=== PATIENT | female | born 1945 | race Caucasian/White ===

== ENCOUNTER 2017-05-18 14:54 | Inpatient (IN) ==
[2017-05-18] MEDS ORDERED: SODIUM CHLORIDE 0.9% 1,750 ML IV ONE (17:27)
[2017-05-18] MEDS ORDERED: SODIUM CHLORIDE 0.9% 1,000 ML IV SCH (17:30)
[2017-05-18] MEDS ORDERED: LEVOFLOXACIN INJ 750 MG in PREMIX 1 EACH IV SCH (17:30)
[2017-05-18] MEDS ORDERED: LACTULOSE 20 GM/30 ML UDCUP PO PRN (17:34)
[2017-05-18] MEDS ORDERED: ONDANSETRON 4 MG/2 ML VIAL IV PRN (17:34)
[2017-05-18] MEDS ORDERED: DOCUSATE SODIUM 100 MG CAPSULE PO PRN (17:34)
[2017-05-18] MEDS ORDERED: ALBUTEROL/IPRATROPIUM 3 ML NEB RESP TX PRN (17:36)
[2017-05-18] MEDS ORDERED: Naloxegol Oxalate [Movantik] 25 MG PO PRN (17:53)
[2017-05-18 18:12] LABS: ABG Base Excess 1.4 MMOL/L (-2.5-2.5); ABG HCO3 25.6 MMOL/L (20-26); ABG Oxygen Saturation 92.7 % (95-100); ABG PCO2 25.4 MM HG (35-48); ABG PH 7.561 (7.35-7.45); ABG PO2 58.4 MM HG (80-95); ABG TCO2 20.9 MMOL/L (23-27)
[2017-05-18 18:56] LABS: Basophils % 0.1 % (0.0-0.8); Eosinophils % 0.2 % (0.00-10.9); Hematocrit 30.9 VOL% (35.7-47.0); Hemoglobin 10.2 GM/DL (12.0-16.0); Immature Granulocytes % 0.9 %; Lymphocytes # 1.1 10*3/uL (1.4-4.0); Lymphocytes % 9.9 % (21.3-54.2); Mean Corpuscular Hemoglobin 27 PG (27-34); Mean Corpuscular Volume 82.8 FL (87-102); Mean Platelet Volume 11.1 FL (9.6-12.0); Monocytes # 0.3 10*3/uL (0.11-0.8); Monocytes % 2.3 % (1.7-12.7); Neutrophils # 9.6 10*3/uL (1.4-7.4); Neutrophils % 86.6 % (38.7-73.9); Platelet Count 313 T/CUMM (130-400); Red Blood Count 3.73 MC/CUMM (3.8-5.5); Red Cell Distribution Width 17.5 % (9.3-17.3); White Blood Count 11.1 T/CUMM (4-12)
[2017-05-18] MEDS ORDERED: ALBUTEROL 2.5 MG/3 ML NEB RESP TX PRN (19:00)
[2017-05-18 19:06] LABS: INR 1.1; PT Patient Result 11.4 SECS; Partial Thromboplastin Time 25.7 SECS (0-40)
[2017-05-18 19:30] LABS: Albumin 1.6 G/DL (3.4-5.0); Bilirubin,Total 0.5 MG/DL (0.2-1.0); Calcium 7.5 MG/DL (8.5-10.1); Osmolality,Calculated 291.7 MOS/KG (273-304); Potassium 2.7 MMOL/L (3.5-5.1); Total Protein 5.6 G/DL (6.4-8.3)
[2017-05-18] MEDS: ALPRAZolam 0.5 MG TABLET PO PRN (19:38)
[2017-05-18 20:34] LABS: Free T4 (Free Thyroxine) 0.9 NG/DL (0.76-1.46); Thyroid Stimulating Hormone 0.51 uIU/ml (0.358-3.74)
[2017-05-18] MEDS: POTASSIUM CHLORIDE 20 MEQ TABLET PO SCH ×2 (20:52→22:00)
[2017-05-18] MEDS: ALBUTEROL/IPRATROPIUM 3 ML NEB RESP TX SCH (21:11)
[2017-05-18] MEDS: CARBIDOPA/LEVODOPA 25-100 MG TABLET PO SCH (21:59)
[2017-05-18] MEDS: MIRTAZAPINE 30 MG TABLET PO SCH (21:59)
[2017-05-18] MEDS: levETIRAcetam 500 MG TABLET PO SCH (21:59)
[2017-05-18] MEDS: OSELTAMIVIR 75 MG CAPSULE PO SCH (22:00)
[2017-05-18] MEDS: GABAPENTIN 300 MG CAPSULE PO SCH (22:00)
[2017-05-18] MEDS: ENOXAPARIN 40 MG/0.4 ML SYRINGE SUBCUT SCH (22:02)
[2017-05-18] MEDS: FLUTICASONE/SALMETEROL 250-50 DISKUS 14 DOSE INH SCH (22:05)
[2017-05-18] MEDS: INSULIN GLARGINE 100 UNIT/ML SUBCUT SCH (22:46)
[2017-05-18] MEDS: clonazePAM 0.5 MG TABLET PO SCH (22:47)
[2017-05-18] MEDS: MEROPENEM 1,000 MG in SYRINGE 1 EACH IV SCH (23:07)
[2017-05-18 23:39] LABS: Apearance,Urine CLEAR (Clear); Bacteria,Urine Occasional /HPF (Few); Bilirubin,Urine Negative (Negative); Blood, Urine Small mg/dL (Negative); Glucose,Urine (UA) Negative (Negative); Ketones,Urine Negative (Negative); Mucus,Urine Occasional /LPF (Occasional); Nitrite,Urine Negative (Negative); Protein,Urine 30 MG/DL; RBC,Urine <1 /HPF (0-4); Urine Color Yellow (Yellow); Urine Specific Gravity 1.008 (1.001-1.035); Urine Urobilinogen < 2.0 EU/DL (0.2-1.0); WBC,Urine 1 /HPF (0-6)
[2017-05-19] MEDS: POTASSIUM CHLORIDE 20 MEQ TABLET PO SCH (00:59)
[2017-05-19] MEDS: ALBUTEROL/IPRATROPIUM 3 ML NEB RESP TX SCH ×6 (03:07→19:42)
[2017-05-19 03:55] LABS: ABG Base Excess 1.8 MMOL/L (-2.5-2.5); ABG HCO3 22.4 MMOL/L (20-26); ABG Oxygen Saturation 93.9 % (95-100); ABG PCO2 23.2 MM HG (35-48); ABG PH 7.602 (7.35-7.45); ABG PO2 60.1 MM HG (80-95); ABG TCO2 23.1 MMOL/L (23-27)
[2017-05-19 04:57] LABS: Basophils % 0.2 % (0.0-0.8); Eosinophils % 0.2 % (0.00-10.9); Hematocrit 29.3 VOL% (35.7-47.0); Hemoglobin 9.6 GM/DL (12.0-16.0); Immature Granulocytes % 0.9 %; Immature Granulocytes Absolute 0.09 #; Lymphocytes # 1.3 10*3/uL (1.4-4.0); Lymphocytes % 12.5 % (21.3-54.2); Mean Corpuscular HGB Conc 32.8 GM/DL (32-36); Mean Corpuscular Hemoglobin 27 PG (27-34); Mean Corpuscular Volume 82.1 FL (87-102); Mean Platelet Volume 11.4 FL (9.6-12.0); Monocytes # 0.4 10*3/uL (0.11-0.8); Monocytes % 3.6 % (1.7-12.7); Neutrophils # 8.5 10*3/uL (1.4-7.4); Neutrophils % 82.6 % (38.7-73.9); Platelet Count 264 T/CUMM (130-400); Red Blood Count 3.57 MC/CUMM (3.8-5.5); Red Cell Distribution Width 17.1 % (9.3-17.3); White Blood Count 10.3 T/CUMM (4-12)
[2017-05-19 05:25] LABS: Calcium 7.7 MG/DL (8.5-10.1); Magnesium 1.2 MG/DL (1.8-2.4); Osmolality,Calculated 285.1 MOS/KG (273-304); Potassium 3.7 MMOL/L (3.5-5.1)
[2017-05-19 05:39] LABS: Band Neutrophils 2 % (0-10); Lymphocytes 15 % (20-55); Segmented Neutrophils 81 % (50-85); Total Cells Counted 100
[2017-05-19 05:40] LABS: Giant Platelets Few; Hypochromasia 1+; Ovalocytes Slight; Platelet Estimate Adequate
[2017-05-19] MEDS ORDERED: DEXTROSE 50% 25 GM/50 ML VIAL IV ONE (09:00)
[2017-05-19] MEDS: CARBIDOPA/LEVODOPA 25-100 MG TABLET PO SCH ×3 (09:30→21:39)
[2017-05-19] MEDS: BENZONATATE 100 MG CAPSULE PO PRN (09:40)
[2017-05-19] MEDS: ASPIRIN EC 81 MG TABLET PO SCH (09:40)
[2017-05-19] MEDS: levETIRAcetam 500 MG TABLET PO SCH ×2 (09:41→21:39)
[2017-05-19] MEDS: GABAPENTIN 300 MG CAPSULE PO SCH ×3 (09:42→21:40)
[2017-05-19] MEDS: MEROPENEM 1,000 MG in SYRINGE 1 EACH IV SCH ×2 (09:42→15:31)
[2017-05-19] MEDS ORDERED: SODIUM CHLORIDE 0.9% 500 ML IV ONE (10:00)
[2017-05-19] MEDS: DEXTROSE 50% 25 GM/50 ML VIAL IV PRN (10:00)
[2017-05-19] MEDS: PROTEASE PO SCH ×3 (11:07→17:41)
[2017-05-19] MEDS: AMYLASE PO SCH ×3 (11:07→17:41)
[2017-05-19] MEDS: LIPASE PO SCH ×3 (11:07→17:41)
[2017-05-19] MEDS: FLUTICASONE/SALMETEROL 250-50 DISKUS 14 DOSE INH SCH ×2 (11:09→21:43)
[2017-05-19] MEDS: PANTOPRAZOLE 40 MG TABLET PO SCH (11:09)
[2017-05-19] MEDS: OSELTAMIVIR 75 MG CAPSULE PO SCH (11:15)
[2017-05-19] MEDS: methylPREDNISolone SOD SUC 40 MG/1 ML VIAL IV SCH (13:31)
[2017-05-19 14:44] LABS: Lactic Acid 2.8 MMOL/L (0.4-2.0)
[2017-05-19] MEDS: ALPRAZolam 0.5 MG TABLET PO PRN (15:02)
[2017-05-19] MEDS: DEXTROSE 5% NACL 0.45% 1,000 ML IV SCH (16:36)
[2017-05-19] MEDS ORDERED: FUROSEMIDE 40 MG/4 ML VIAL IV SCH (21:00)
[2017-05-19] MEDS: MIRTAZAPINE 30 MG TABLET PO SCH (21:39)
[2017-05-19] MEDS: OSELTAMIVIR 30 MG CAPSULE PO SCH (21:39)
[2017-05-19] MEDS: ENOXAPARIN 40 MG/0.4 ML SYRINGE SUBCUT SCH (21:40)
[2017-05-19] MEDS: clonazePAM 0.5 MG TABLET PO SCH (21:46)
[2017-05-19] MEDS: INSULIN GLARGINE 100 UNIT/ML SUBCUT SCH (21:55)
[2017-05-20] MEDS ORDERED: INSULIN REGULAR 100 UNIT/ML IV ONE (00:40)
[2017-05-20] MEDS ORDERED: DEXTROSE 50% 25 GM/50 ML VIAL IV PRN ×3 (00:42→07:15)
[2017-05-20] MEDS ORDERED: GLUCAGON 1 MG VIAL IM PRN ×3 (00:42→07:15)
[2017-05-20] MEDS: ALBUTEROL/IPRATROPIUM 3 ML NEB RESP TX SCH ×6 (01:14→20:27)
[2017-05-20] MEDS: INSULIN REGULAR 100 UNIT/ML SUBCUT SCH ×6 (01:20→21:01)
[2017-05-20] MEDS: methylPREDNISolone SOD SUC 40 MG/1 ML VIAL IV SCH ×2 (01:24→15:20)
[2017-05-20] MEDS: DEXTROSE 5% NACL 0.45% 1,000 ML IV SCH (01:57)
[2017-05-20 03:12] LABS: ABG Base Excess -4.5 MMOL/L (-2.5-2.5); ABG HCO3 20.6 MMOL/L (20-26); ABG Oxygen Saturation 96.1 % (95-100); ABG PH 7.447 (7.35-7.45); ABG TCO2 17.4 MMOL/L (23-27); Allen Test Positive
[2017-05-20] MEDS: MEROPENEM 1,000 MG in SYRINGE 1 EACH IV SCH ×2 (04:56→19:07)
[2017-05-20 05:02] LABS: Basophils % 0.1 % (0.0-0.8); Hematocrit 24.6 VOL% (35.7-47.0); Immature Granulocytes % 1.1 %; Immature Granulocytes Absolute 0.09 #; Lymphocytes # 0.5 10*3/uL (1.4-4.0); Lymphocytes % 5.9 % (21.3-54.2); Mean Corpuscular HGB Conc 32.5 GM/DL (32-36); Mean Corpuscular Hemoglobin 27 PG (27-34); Mean Corpuscular Volume 82.8 FL (87-102); Mean Platelet Volume 12.2 FL (9.6-12.0); Monocytes # 0.3 10*3/uL (0.11-0.8); Monocytes % 3.6 % (1.7-12.7); Neutrophils # 7.2 10*3/uL (1.4-7.4); Neutrophils % 89.3 % (38.7-73.9); Platelet Count 183 T/CUMM (130-400); Red Blood Count 2.97 MC/CUMM (3.8-5.5); Red Cell Distribution Width 17.2 % (9.3-17.3); White Blood Count 8.1 T/CUMM (4-12)
[2017-05-20 05:30] LABS: Magnesium 1.4 MG/DL (1.8-2.4); Osmolality,Calculated 292.1 MOS/KG (273-304); Potassium 3.6 MMOL/L (3.5-5.1)
[2017-05-20] MEDS: CARBIDOPA/LEVODOPA 25-100 MG TABLET PO SCH ×3 (09:37→21:03)
[2017-05-20] MEDS: ALPRAZolam 0.5 MG TABLET PO PRN ×2 (09:37→16:00)
[2017-05-20] MEDS: BENZONATATE 100 MG CAPSULE PO PRN (09:37)
[2017-05-20] MEDS: ASPIRIN EC 81 MG TABLET PO SCH (09:38)
[2017-05-20] MEDS: PANTOPRAZOLE 40 MG TABLET PO SCH (09:38)
[2017-05-20] MEDS: GABAPENTIN 300 MG CAPSULE PO SCH ×3 (09:38→21:03)
[2017-05-20] MEDS: levETIRAcetam 500 MG TABLET PO SCH ×2 (09:39→21:02)
[2017-05-20] MEDS: OSELTAMIVIR 30 MG CAPSULE PO SCH ×2 (09:42→21:06)
[2017-05-20] MEDS: FLUTICASONE/SALMETEROL 250-50 DISKUS 14 DOSE INH SCH ×2 (09:42→21:01)
[2017-05-20] MEDS: SODIUM CHLOR 0.9% KCL 20 MEQ 20 MEQ/1,000 ML BAG IV SCH (09:49)
[2017-05-20] MEDS ORDERED: POLYETHYLENE GLYCOL POWDER 17 GM PACK PO PRN (10:59)
[2017-05-20] MEDS ORDERED: VANCOMYCIN INJ 1,000 MG in SODIUM CHLORIDE 0.9% 250 ML IV ONE (12:30)
[2017-05-20] MEDS ORDERED: VANCOMYCIN INJ 1,000 MG in SODIUM CHLORIDE 0.9% 250 ML IV PRN (14:04)
[2017-05-20] MEDS: PROTEASE PO SCH ×2 (14:28→19:07)
[2017-05-20] MEDS: LIPASE PO SCH ×2 (14:28→19:07)
[2017-05-20] MEDS: AMYLASE PO SCH ×2 (14:28→19:07)
[2017-05-20 15:11] LABS: Procalcitonin, S 1.4 ng/mL (<=0.15)
[2017-05-20] MEDS: clonazePAM 0.5 MG TABLET PO SCH (21:02)
[2017-05-20] MEDS: INSULIN GLARGINE 100 UNIT/ML SUBCUT SCH (21:02)
[2017-05-20] MEDS: MIRTAZAPINE 30 MG TABLET PO SCH (21:03)
[2017-05-20] MEDS: ENOXAPARIN 40 MG/0.4 ML SYRINGE SUBCUT SCH (21:03)
[2017-05-21] MEDS: ALBUTEROL/IPRATROPIUM 3 ML NEB RESP TX SCH ×7 (00:13→23:50)
[2017-05-21] MEDS: methylPREDNISolone SOD SUC 40 MG/1 ML VIAL IV SCH ×2 (00:28→15:31)
[2017-05-21] MEDS: INSULIN REGULAR 100 UNIT/ML SUBCUT SCH ×6 (00:29→21:45)
[2017-05-21] MEDS: MEROPENEM 1,000 MG in SYRINGE 1 EACH IV SCH ×2 (04:19→17:05)
[2017-05-21 04:42] LABS: Basophils % 0.1 % (0.0-0.8); Hematocrit 24.4 VOL% (35.7-47.0); Hemoglobin 8.2 GM/DL (12.0-16.0); Immature Granulocytes % 0.9 %; Immature Granulocytes Absolute 0.08 #; Lymphocytes # 0.5 10*3/uL (1.4-4.0); Lymphocytes % 5.6 % (21.3-54.2); Mean Corpuscular HGB Conc 33.6 GM/DL (32-36); Mean Corpuscular Hemoglobin 27 PG (27-34); Mean Corpuscular Volume 81.1 FL (87-102); Mean Platelet Volume 12.3 FL (9.6-12.0); Monocytes # 0.3 10*3/uL (0.11-0.8); Monocytes % 3.6 % (1.7-12.7); Neutrophils # 7.6 10*3/uL (1.4-7.4); Neutrophils % 89.8 % (38.7-73.9); Platelet Count 191 T/CUMM (130-400); Red Blood Count 3.01 MC/CUMM (3.8-5.5); Red Cell Distribution Width 17.2 % (9.3-17.3); White Blood Count 8.5 T/CUMM (4-12)
[2017-05-21 05:11] LABS: ABG Base Excess -1.1 MMOL/L (-2.5-2.5); ABG HCO3 23.4 MMOL/L (20-26); ABG Oxygen Saturation 95.9 % (95-100); ABG PCO2 28.1 MM HG (35-48); ABG PH 7.493 (7.35-7.45); ABG PO2 73.8 MM HG (80-95); ABG TCO2 20.2 MMOL/L (23-27); Allen Test Positive; Pt O2 Delivery Device Room Air
[2017-05-21 05:11] LABS: Calcium 7.5 MG/DL (8.5-10.1); Osmolality,Calculated 289.4 MOS/KG (273-304)
[2017-05-21 05:12] LABS: Calcium 7.3 MG/DL (8.5-10.1); Magnesium 1.4 MG/DL (1.8-2.4); Osmolality,Calculated 285.7 MOS/KG (273-304); Potassium 4.5 MMOL/L (3.5-5.1)
[2017-05-21] MEDS: SODIUM CHLOR 0.9% KCL 20 MEQ 20 MEQ/1,000 ML BAG IV SCH ×2 (06:33→08:52)
[2017-05-21] MEDS: PROTEASE PO SCH ×3 (08:41→16:50)
[2017-05-21] MEDS: AMYLASE PO SCH ×3 (08:41→16:50)
[2017-05-21] MEDS: LIPASE PO SCH ×3 (08:41→16:50)
[2017-05-21] MEDS: CARBIDOPA/LEVODOPA 25-100 MG TABLET PO SCH ×3 (08:50→21:43)
[2017-05-21] MEDS: PANTOPRAZOLE 40 MG TABLET PO SCH (08:50)
[2017-05-21] MEDS: ASPIRIN EC 81 MG TABLET PO SCH (08:50)
[2017-05-21] MEDS: levETIRAcetam 500 MG TABLET PO SCH ×2 (08:50→21:44)
[2017-05-21] MEDS: ALPRAZolam 0.5 MG TABLET PO PRN ×2 (08:51→21:43)
[2017-05-21] MEDS: OSELTAMIVIR 30 MG CAPSULE PO SCH ×2 (08:53→21:43)
[2017-05-21] MEDS: FLUTICASONE/SALMETEROL 250-50 DISKUS 14 DOSE INH SCH (08:54)
[2017-05-21] MEDS: GABAPENTIN 300 MG CAPSULE PO SCH ×3 (09:26→21:43)
[2017-05-21] MEDS: VANCOMYCIN INJ 1,000 MG in SODIUM CHLORIDE 0.9% 250 ML IV SCH (21:46)
[2017-05-21] MEDS: ENOXAPARIN 40 MG/0.4 ML SYRINGE SUBCUT SCH (21:46)
[2017-05-21] MEDS: INSULIN GLARGINE 100 UNIT/ML SUBCUT SCH (22:43)
[2017-05-21] MEDS: clonazePAM 0.5 MG TABLET PO SCH (22:43)
[2017-05-21] MEDS: MIRTAZAPINE 30 MG TABLET PO SCH (22:45)
[2017-05-22] MEDS: FLUTICASONE/SALMETEROL 250-50 DISKUS 14 DOSE INH SCH ×3 (00:31→21:20)
[2017-05-22] MEDS: INSULIN REGULAR 100 UNIT/ML SUBCUT SCH ×6 (01:43→21:20)
[2017-05-22] MEDS: methylPREDNISolone SOD SUC 40 MG/1 ML VIAL IV SCH ×3 (01:44→23:41)
[2017-05-22] MEDS: ALBUTEROL/IPRATROPIUM 3 ML NEB RESP TX SCH ×5 (02:33→19:35)
[2017-05-22] MEDS: MEROPENEM 1,000 MG in SYRINGE 1 EACH IV SCH ×3 (03:48→23:38)
[2017-05-22 03:59] LABS: ABG Base Excess -2.5 MMOL/L (-2.5-2.5); ABG HCO3 21.2 MMOL/L (20-26); ABG Oxygen Saturation 98.4 % (95-100); ABG PCO2 32.1 MM HG (35-48); ABG PH 7.438 (7.35-7.45); ABG TCO2 22.2 MMOL/L (23-27)
[2017-05-22] MEDS: SODIUM CHLOR 0.9% KCL 20 MEQ 20 MEQ/1,000 ML BAG IV SCH ×2 (06:37→23:38)
[2017-05-22 07:23] LABS: Basophils % 0.2 % (0.0-0.8); Hemoglobin 8.9 GM/DL (12.0-16.0); Immature Granulocytes % 0.9 %; Immature Granulocytes Absolute 0.09 #; Lymphocytes # 0.5 10*3/uL (1.4-4.0); Lymphocytes % 5.5 % (21.3-54.2); Mean Corpuscular Hemoglobin 28 PG (27-34); Mean Corpuscular Volume 83.6 FL (87-102); Mean Platelet Volume 12.2 FL (9.6-12.0); Monocytes # 0.4 10*3/uL (0.11-0.8); Monocytes % 4.3 % (1.7-12.7); NRBC # 0.02 10*3/uL; Neutrophils # 8.7 10*3/uL (1.4-7.4); Neutrophils % 89.1 % (38.7-73.9); Platelet Count 230 T/CUMM (130-400); Red Blood Count 3.23 MC/CUMM (3.8-5.5); Red Cell Distribution Width 17.5 % (9.3-17.3); White Blood Count 9.8 T/CUMM (4-12)
[2017-05-22 07:44] LABS: Band Neutrophils 2 % (0-10); Hypochromasia 1+; Lymphocytes 4 % (20-55); Microcytosis 1+; Ovalocytes Slight; Segmented Neutrophils 91 % (50-85); Total Cells Counted 100
[2017-05-22 07:45] LABS: Platelet Estimate Normal
[2017-05-22 07:50] LABS: Calcium 7.4 MG/DL (8.5-10.1); Magnesium 1.3 MG/DL (1.8-2.4); Osmolality,Calculated 284.1 MOS/KG (273-304); Potassium 4.5 MMOL/L (3.5-5.1)
[2017-05-22 08:00] LABS: Albumin 1.6 G/DL (3.4-5.0); Bilirubin,Total 0.5 MG/DL (0.2-1.0); Calcium 7.7 MG/DL (8.5-10.1); Osmolality,Calculated 284.1 MOS/KG (273-304); Potassium 4.4 MMOL/L (3.5-5.1); Total Protein 5.5 G/DL (6.4-8.3)
[2017-05-22] MEDS: levETIRAcetam 500 MG TABLET PO SCH ×2 (09:23→21:23)
[2017-05-22] MEDS: CARBIDOPA/LEVODOPA 25-100 MG TABLET PO SCH ×3 (09:23→21:23)
[2017-05-22] MEDS: OSELTAMIVIR 30 MG CAPSULE PO SCH ×2 (09:24→21:23)
[2017-05-22] MEDS: GABAPENTIN 300 MG CAPSULE PO SCH ×3 (09:24→21:23)
[2017-05-22] MEDS: ASPIRIN EC 81 MG TABLET PO SCH (09:24)
[2017-05-22] MEDS: PANTOPRAZOLE 40 MG TABLET PO SCH (09:24)
[2017-05-22] MEDS: LIPASE PO SCH ×3 (10:22→17:28)
[2017-05-22] MEDS: PROTEASE PO SCH ×3 (10:22→17:28)
[2017-05-22] MEDS: AMYLASE PO SCH ×3 (10:22→17:28)
[2017-05-22] MEDS: ALPRAZolam 0.5 MG TABLET PO PRN (15:35)
[2017-05-22] MEDS: VANCOMYCIN INJ 1,000 MG in SODIUM CHLORIDE 0.9% 250 ML IV SCH (18:32)
[2017-05-22] MEDS: INSULIN GLARGINE 100 UNIT/ML SUBCUT SCH (21:20)
[2017-05-22] MEDS: MIRTAZAPINE 30 MG TABLET PO SCH (21:22)
[2017-05-22] MEDS: clonazePAM 0.5 MG TABLET PO SCH (21:23)
[2017-05-22] MEDS: ENOXAPARIN 40 MG/0.4 ML SYRINGE SUBCUT SCH (21:23)
[2017-05-23] MEDS: INSULIN REGULAR 100 UNIT/ML SUBCUT SCH ×6 (00:06→20:37)
[2017-05-23] MEDS: ALBUTEROL/IPRATROPIUM 3 ML NEB RESP TX SCH ×7 (00:15→23:36)
[2017-05-23 04:39] LABS: ABG Base Excess -1.4 MMOL/L (-2.5-2.5); ABG HCO3 23.2 MMOL/L (20-26); ABG Oxygen Saturation 99.4 % (95-100); ABG PCO2 38.1 MM HG (35-48); ABG PH 7.392 (7.35-7.45); ABG TCO2 20.4 MMOL/L (23-27); Allen Test Positive
[2017-05-23 06:18] LABS: Basophils % 0.1 % (0.0-0.8); Hematocrit 23.7 VOL% (35.7-47.0); Hemoglobin 7.7 GM/DL (12.0-16.0); Immature Granulocytes % 0.8 %; Immature Granulocytes Absolute 0.08 #; Lymphocytes # 0.5 10*3/uL (1.4-4.0); Lymphocytes % 4.9 % (21.3-54.2); Mean Corpuscular HGB Conc 32.5 GM/DL (32-36); Mean Corpuscular Hemoglobin 28 PG (27-34); Mean Corpuscular Volume 84.9 FL (87-102); Monocytes # 0.6 10*3/uL (0.11-0.8); Monocytes % 5.8 % (1.7-12.7); Neutrophils # 8.4 10*3/uL (1.4-7.4); Neutrophils % 88.4 % (38.7-73.9); Platelet Count 204 T/CUMM (130-400); Red Blood Count 2.79 MC/CUMM (3.8-5.5); Red Cell Distribution Width 17.6 % (9.3-17.3); White Blood Count 9.5 T/CUMM (4-12)
[2017-05-23 06:55] LABS: Calcium 7.7 MG/DL (8.5-10.1); Magnesium 1.4 MG/DL (1.8-2.4); Osmolality,Calculated 285.3 MOS/KG (273-304); Potassium 4.5 MMOL/L (3.5-5.1)
[2017-05-23 07:38] LABS: Band Neutrophils 1 % (0-10); Eosinophils 1 % (0-10); Hypochromasia 2+; Lymphocytes 4 % (20-55); Microcytosis 1+; Platelet Estimate Adequate; Segmented Neutrophils 86 % (50-85); Total Cells Counted 100
[2017-05-23] MEDS ORDERED: SODIUM CHLORIDE 0.9% 1,000 ML IV PRN (08:25)
[2017-05-23] MEDS: LIPASE PO SCH ×3 (08:57→17:14)
[2017-05-23] MEDS: PROTEASE PO SCH ×3 (08:57→17:14)
[2017-05-23] MEDS: AMYLASE PO SCH ×3 (08:57→17:14)
[2017-05-23] MEDS: GABAPENTIN 300 MG CAPSULE PO SCH ×3 (10:00→20:30)
[2017-05-23] MEDS: CARBIDOPA/LEVODOPA 25-100 MG TABLET PO SCH ×3 (10:00→20:29)
[2017-05-23] MEDS: ASPIRIN EC 81 MG TABLET PO SCH (10:00)
[2017-05-23] MEDS: MEROPENEM 1,000 MG in SYRINGE 1 EACH IV SCH ×3 (10:00→23:46)
[2017-05-23] MEDS: levETIRAcetam 500 MG TABLET PO SCH ×2 (10:00→20:29)
[2017-05-23] MEDS: PANTOPRAZOLE 40 MG TABLET PO SCH (10:01)
[2017-05-23] MEDS: FLUTICASONE/SALMETEROL 250-50 DISKUS 14 DOSE INH SCH ×2 (10:40→20:29)
[2017-05-23] MEDS: OSELTAMIVIR 30 MG CAPSULE PO SCH ×2 (10:40→20:39)
[2017-05-23] MEDS ORDERED: FUROSEMIDE 40 MG/4 ML VIAL IV ONE (12:23)
[2017-05-23] MEDS: methylPREDNISolone SOD SUC 40 MG/1 ML VIAL IV SCH (13:24)
[2017-05-23] MEDS: ALPRAZolam 0.5 MG TABLET PO PRN ×2 (14:37→20:39)
[2017-05-23] MEDS: ACETAMINOPHEN 325 MG TABLET PO PRN ×2 (14:38→20:39)
[2017-05-23] MEDS: VANCOMYCIN INJ 1,000 MG in SODIUM CHLORIDE 0.9% 250 ML IV SCH (19:31)
[2017-05-23] MEDS: ENOXAPARIN 40 MG/0.4 ML SYRINGE SUBCUT SCH (20:30)
[2017-05-23] MEDS: clonazePAM 0.5 MG TABLET PO SCH (20:30)
[2017-05-23] MEDS: MIRTAZAPINE 30 MG TABLET PO SCH (20:30)
[2017-05-23] MEDS: INSULIN GLARGINE 100 UNIT/ML SUBCUT SCH (20:38)
[2017-05-24] MEDS: methylPREDNISolone SOD SUC 40 MG/1 ML VIAL IV SCH ×2 (01:19→13:20)
[2017-05-24] MEDS: INSULIN REGULAR 100 UNIT/ML SUBCUT SCH ×6 (01:20→20:51)
[2017-05-24] MEDS: ALBUTEROL/IPRATROPIUM 3 ML NEB RESP TX SCH ×5 (03:46→20:15)
[2017-05-24 06:16] LABS: Eosinophils % 0.3 % (0.00-10.9); Hematocrit 24.2 VOL% (35.7-47.0); Hemoglobin 7.5 GM/DL (12.0-16.0); Immature Granulocytes % 0.9 %; Immature Granulocytes Absolute 0.07 #; Lymphocytes # 0.4 10*3/uL (1.4-4.0); Lymphocytes % 5.4 % (21.3-54.2); Mean Corpuscular Hemoglobin 27 PG (27-34); Mean Corpuscular Volume 87.7 FL (87-102); Mean Platelet Volume 12.6 FL (9.6-12.0); Monocytes # 0.3 10*3/uL (0.11-0.8); Monocytes % 4.5 % (1.7-12.7); Neutrophils # 6.6 10*3/uL (1.4-7.4); Neutrophils % 88.9 % (38.7-73.9); Platelet Count 182 T/CUMM (130-400); Red Blood Count 2.76 MC/CUMM (3.8-5.5); Red Cell Distribution Width 17.5 % (9.3-17.3); White Blood Count 7.4 T/CUMM (4-12)
[2017-05-24 06:47] LABS: Calcium 7.8 MG/DL (8.5-10.1); Magnesium 1.4 MG/DL (1.8-2.4); Osmolality,Calculated 282.4 MOS/KG (273-304); Potassium 4.8 MMOL/L (3.5-5.1)
[2017-05-24] MEDS: MEROPENEM 1,000 MG in SYRINGE 1 EACH IV SCH ×2 (08:57→17:20)
[2017-05-24] MEDS: FLUTICASONE/SALMETEROL 250-50 DISKUS 14 DOSE INH SCH ×2 (08:58→22:06)
[2017-05-24] MEDS: CARBIDOPA/LEVODOPA 25-100 MG TABLET PO SCH ×3 (08:58→20:51)
[2017-05-24] MEDS: GABAPENTIN 300 MG CAPSULE PO SCH ×3 (08:59→20:51)
[2017-05-24] MEDS: ASPIRIN EC 81 MG TABLET PO SCH (08:59)
[2017-05-24] MEDS: levETIRAcetam 500 MG TABLET PO SCH ×2 (08:59→20:51)
[2017-05-24] MEDS: PROTEASE PO SCH ×3 (08:59→17:20)
[2017-05-24] MEDS: LIPASE PO SCH ×3 (08:59→17:20)
[2017-05-24] MEDS: ALPRAZolam 0.5 MG TABLET PO PRN ×2 (08:59→14:49)
[2017-05-24] MEDS: PANTOPRAZOLE 40 MG TABLET PO SCH (08:59)
[2017-05-24] MEDS: AMYLASE PO SCH ×3 (08:59→17:20)
[2017-05-24] MEDS: OSELTAMIVIR 30 MG CAPSULE PO SCH ×2 (09:00→20:51)
[2017-05-24] MEDS ORDERED: PHENOL 1.4% THROAT SPRAY 177 ML BOTTLE PO PRN (11:21)
[2017-05-24] MEDS: VANCOMYCIN INJ 1,000 MG in SODIUM CHLORIDE 0.9% 250 ML IV SCH (19:33)
[2017-05-24] MEDS: INSULIN GLARGINE 100 UNIT/ML SUBCUT SCH (20:48)
[2017-05-24] MEDS: ENOXAPARIN 40 MG/0.4 ML SYRINGE SUBCUT SCH (20:51)
[2017-05-24] MEDS: MIRTAZAPINE 30 MG TABLET PO SCH (20:51)
[2017-05-24] MEDS: clonazePAM 0.5 MG TABLET PO SCH (20:51)
[2017-05-25] MEDS: ALBUTEROL/IPRATROPIUM 3 ML NEB RESP TX SCH ×7 (00:11→23:33)
[2017-05-25] MEDS ORDERED: FUROSEMIDE 40 MG/4 ML VIAL ONE (00:52)
[2017-05-25] MEDS: methylPREDNISolone SOD SUC 40 MG/1 ML VIAL IV SCH ×2 (00:54→12:09)
[2017-05-25] MEDS: MEROPENEM 1,000 MG in SYRINGE 1 EACH IV SCH ×3 (00:54→15:30)
[2017-05-25] MEDS: INSULIN REGULAR 100 UNIT/ML SUBCUT SCH ×6 (02:09→21:03)
[2017-05-25 06:12] LABS: Hematocrit 37.8 VOL% (35.7-47.0)
[2017-05-25 06:13] LABS: Basophils % 0.1 % (0.0-0.8); Eosinophils # 0.1 10*3/uL (0.0-0.87); Eosinophils % 0.8 % (0.00-10.9); Hematocrit 37.9 VOL% (35.7-47.0); Hemoglobin 12.3 GM/DL (12.0-16.0); Immature Granulocytes % 1.2 %; Immature Granulocytes Absolute 0.09 #; Lymphocytes # 0.7 10*3/uL (1.4-4.0); Lymphocytes % 9.6 % (21.3-54.2); Mean Corpuscular HGB Conc 32.5 GM/DL (32-36); Mean Corpuscular Hemoglobin 28 PG (27-34); Mean Corpuscular Volume 85.4 FL (87-102); Mean Platelet Volume 12.1 FL (9.6-12.0); Monocytes # 0.3 10*3/uL (0.11-0.8); Monocytes % 4.5 % (1.7-12.7); Neutrophils # 6.1 10*3/uL (1.4-7.4); Neutrophils % 83.8 % (38.7-73.9); Platelet Count 198 T/CUMM (130-400); Red Blood Count 4.44 MC/CUMM (3.8-5.5); Red Cell Distribution Width 17.4 % (9.3-17.3); White Blood Count 7.3 T/CUMM (4-12)
[2017-05-25 06:16] LABS: PT Patient Result 10.3 SECS
[2017-05-25 06:17] LABS: Hemoglobin 12.1 GM/DL (12.0-16.0)
[2017-05-25] MEDS: FLUTICASONE/SALMETEROL 250-50 DISKUS 14 DOSE INH SCH (09:24)
[2017-05-25] MEDS: PANTOPRAZOLE 40 MG TABLET PO SCH (09:26)
[2017-05-25] MEDS: GABAPENTIN 300 MG CAPSULE PO SCH ×3 (09:26→21:03)
[2017-05-25] MEDS: ASPIRIN EC 81 MG TABLET PO SCH (09:26)
[2017-05-25] MEDS: CARBIDOPA/LEVODOPA 25-100 MG TABLET PO SCH ×3 (09:26→21:03)
[2017-05-25] MEDS: levETIRAcetam 500 MG TABLET PO SCH ×2 (09:26→21:03)
[2017-05-25] MEDS: ALPRAZolam 0.5 MG TABLET PO PRN (09:27)
[2017-05-25] MEDS: OSELTAMIVIR 30 MG CAPSULE PO SCH ×2 (09:27→21:03)
[2017-05-25] MEDS: PROTEASE PO SCH ×3 (09:30→18:14)
[2017-05-25] MEDS: LIPASE PO SCH ×3 (09:30→18:14)
[2017-05-25] MEDS: AMYLASE PO SCH ×3 (09:30→18:14)
[2017-05-25] MEDS ORDERED: MAGNESIUM SULF RIDER 4 GM in PREMIX 1 EACH IV ONE (14:35)
[2017-05-25] MEDS: VANCOMYCIN INJ 1,000 MG in SODIUM CHLORIDE 0.9% 250 ML IV SCH (19:29)
[2017-05-25] MEDS: VORICONAZOLE 200 MG TABLET PO SCH (21:02)
[2017-05-25] MEDS: FLUTICASONE/SALMETEROL 500-50 DISKUS 14 DOSE INH SCH (21:03)
[2017-05-25] MEDS: MIRTAZAPINE 30 MG TABLET PO SCH (21:03)
[2017-05-25] MEDS: INSULIN GLARGINE 100 UNIT/ML SUBCUT SCH (21:04)
[2017-05-25] MEDS: clonazePAM 0.5 MG TABLET PO SCH (21:05)
[2017-05-25] MEDS: ENOXAPARIN 40 MG/0.4 ML SYRINGE SUBCUT SCH (21:05)
[2017-05-25] MEDS: valACYclovir 500 MG TABLET PO SCH (21:43)
[2017-05-26] MEDS: MEROPENEM 1,000 MG in SYRINGE 1 EACH IV SCH ×4 (00:25→23:28)
[2017-05-26] MEDS: methylPREDNISolone SOD SUC 40 MG/1 ML VIAL IV SCH ×3 (00:31→23:34)
[2017-05-26] MEDS: INSULIN REGULAR 100 UNIT/ML SUBCUT SCH ×6 (00:41→21:22)
[2017-05-26] MEDS: ALBUTEROL/IPRATROPIUM 3 ML NEB RESP TX SCH ×5 (02:51→20:15)
[2017-05-26 06:20] LABS: Basophils % 0.1 % (0.0-0.8); Hemoglobin 11.3 GM/DL (12.0-16.0); Immature Granulocytes Absolute 0.08 #; Lymphocytes # 0.3 10*3/uL (1.4-4.0); Lymphocytes % 3.5 % (21.3-54.2); Mean Corpuscular HGB Conc 33.2 GM/DL (32-36); Mean Corpuscular Hemoglobin 28 PG (27-34); Mean Corpuscular Volume 83.7 FL (87-102); Mean Platelet Volume 12.1 FL (9.6-12.0); Monocytes # 0.2 10*3/uL (0.11-0.8); Monocytes % 1.8 % (1.7-12.7); Neutrophils # 7.8 10*3/uL (1.4-7.4); Neutrophils % 93.6 % (38.7-73.9); Platelet Count 207 T/CUMM (130-400); Red Blood Count 4.06 MC/CUMM (3.8-5.5); Red Cell Distribution Width 17.6 % (9.3-17.3); White Blood Count 8.3 T/CUMM (4-12)
[2017-05-26 06:40] LABS: Albumin 1.5 G/DL (3.4-5.0); Bilirubin,Total 0.4 MG/DL (0.2-1.0); Calcium 7.9 MG/DL (8.5-10.1); Magnesium 2.4 MG/DL (1.8-2.4); Osmolality,Calculated 291.4 MOS/KG (273-304); Potassium 4.2 MMOL/L (3.5-5.1)
[2017-05-26 06:42] LABS: Band Neutrophils 1 % (0-10); Giant Platelets Few; Hypochromasia 1+; Lymphocytes 3 % (20-55); Ovalocytes Slight; Platelet Estimate Adequate; Segmented Neutrophils 93 % (50-85); Total Cells Counted 100
[2017-05-26 06:43] LABS: Microcytosis Slight
[2017-05-26] MEDS: PROTEASE PO SCH ×3 (08:41→17:05)
[2017-05-26] MEDS: LIPASE PO SCH ×3 (08:41→17:05)
[2017-05-26] MEDS: AMYLASE PO SCH ×3 (08:41→17:05)
[2017-05-26] MEDS: FLUTICASONE/SALMETEROL 500-50 DISKUS 14 DOSE INH SCH ×2 (08:41→20:45)
[2017-05-26] MEDS: ASPIRIN EC 81 MG TABLET PO SCH (08:42)
[2017-05-26] MEDS: levETIRAcetam 500 MG TABLET PO SCH ×2 (08:43→20:45)
[2017-05-26] MEDS: PANTOPRAZOLE 40 MG TABLET PO SCH (08:43)
[2017-05-26] MEDS: CARBIDOPA/LEVODOPA 25-100 MG TABLET PO SCH ×3 (08:43→20:44)
[2017-05-26] MEDS: GABAPENTIN 300 MG CAPSULE PO SCH ×3 (08:43→20:44)
[2017-05-26] MEDS: OSELTAMIVIR 30 MG CAPSULE PO SCH ×2 (08:44→20:44)
[2017-05-26] MEDS: valACYclovir 500 MG TABLET PO SCH ×2 (08:44→20:44)
[2017-05-26] MEDS: VORICONAZOLE 200 MG TABLET PO SCH ×2 (08:45→20:45)
[2017-05-26 15:41] LABS: Hematocrit 33.8 VOL% (35.7-47.0); Hemoglobin 10.9 GM/DL (12.0-16.0); Immature Granulocytes % 0.9 %; Immature Granulocytes Absolute 0.08 #; Lymphocytes # 0.3 10*3/uL (1.4-4.0); Lymphocytes % 3.3 % (21.3-54.2); Mean Corpuscular HGB Conc 32.2 GM/DL (32-36); Mean Corpuscular Hemoglobin 28 PG (27-34); Mean Corpuscular Volume 86.7 FL (87-102); Monocytes # 0.2 10*3/uL (0.11-0.8); Monocytes % 2.5 % (1.7-12.7); Neutrophils % 93.3 % (38.7-73.9); Platelet Count 213 T/CUMM (130-400); Red Cell Distribution Width 17.7 % (9.3-17.3); White Blood Count 8.5 T/CUMM (4-12)
[2017-05-26 16:02] LABS: Albumin 1.6 G/DL (3.4-5.0); Bilirubin,Total 0.4 MG/DL (0.2-1.0); Calcium 7.8 MG/DL (8.5-10.1); Osmolality,Calculated 296.7 MOS/KG (273-304); Potassium 4.2 MMOL/L (3.5-5.1); Total Protein 5.2 G/DL (6.4-8.3)
[2017-05-26 16:06] LABS: Burr Cells 1+; Lymphocytes 4 % (20-55); Platelet Estimate Adequate; Segmented Neutrophils 96 % (50-85); Total Cells Counted 100
[2017-05-26 16:07] LABS: Ovalocytes 1+; Poikilocytosis 2+; Tear Drop Cells Few
[2017-05-26 16:08] LABS: ABG Base Excess 3.5 MMOL/L (-2.5-2.5); ABG HCO3 26.4 MMOL/L (20-26); ABG Oxygen Saturation 99.1 % (95-100); ABG PCO2 34.2 MM HG (35-48); ABG PH 7.506 (7.35-7.45); ABG PO2 215.1 MM HG (80-95); ABG TCO2 27.5 MMOL/L (23-27)
[2017-05-26] MEDS: ALPRAZolam 0.5 MG TABLET PO PRN (17:05)
[2017-05-26] MEDS: VANCOMYCIN INJ 1,000 MG in SODIUM CHLORIDE 0.9% 250 ML IV SCH (18:33)
[2017-05-26] MEDS: MIRTAZAPINE 30 MG TABLET PO SCH (20:44)
[2017-05-26] MEDS: clonazePAM 0.5 MG TABLET PO SCH (20:44)
[2017-05-26] MEDS: INSULIN GLARGINE 100 UNIT/ML SUBCUT SCH (20:45)
[2017-05-26] MEDS: ENOXAPARIN 40 MG/0.4 ML SYRINGE SUBCUT SCH (20:46)
[2017-05-27] MEDS: ALBUTEROL/IPRATROPIUM 3 ML NEB RESP TX SCH ×7 (00:42→23:32)
[2017-05-27] MEDS: INSULIN REGULAR 100 UNIT/ML SUBCUT SCH ×6 (01:32→21:28)
[2017-05-27 06:50] LABS: Basophils % 0.1 % (0.0-0.8); Hematocrit 31.8 VOL% (35.7-47.0); Hemoglobin 10.3 GM/DL (12.0-16.0); Immature Granulocytes % 1.6 %; Immature Granulocytes Absolute 0.13 #; Lymphocytes # 0.3 10*3/uL (1.4-4.0); Lymphocytes % 3.7 % (21.3-54.2); Mean Corpuscular HGB Conc 32.4 GM/DL (32-36); Mean Corpuscular Hemoglobin 27 PG (27-34); Mean Corpuscular Volume 84.4 FL (87-102); Mean Platelet Volume 11.4 FL (9.6-12.0); Monocytes # 0.2 10*3/uL (0.11-0.8); Monocytes % 2.4 % (1.7-12.7); Neutrophils # 7.4 10*3/uL (1.4-7.4); Neutrophils % 92.2 % (38.7-73.9); Platelet Count 220 T/CUMM (130-400); Red Blood Count 3.77 MC/CUMM (3.8-5.5); Red Cell Distribution Width 17.7 % (9.3-17.3)
[2017-05-27 07:19] LABS: Albumin 1.6 G/DL (3.4-5.0); Band Neutrophils 1 % (0-10); Bilirubin,Total 0.8 MG/DL (0.2-1.0); Calcium 8.2 MG/DL (8.5-10.1); Hypochromasia 1+; Lymphocytes 2 % (20-55); Osmolality,Calculated 292.3 MOS/KG (273-304); Platelet Estimate Adequate; Potassium 3.9 MMOL/L (3.5-5.1); Segmented Neutrophils 96 % (50-85); Total Cells Counted 100; Total Protein 4.9 G/DL (6.4-8.3)
[2017-05-27 07:20] LABS: Giant Platelets Few; Microcytosis Slight; Ovalocytes Slight
[2017-05-27] MEDS: LIPASE PO SCH ×3 (08:44→17:29)
[2017-05-27] MEDS: MEROPENEM 1,000 MG in SYRINGE 1 EACH IV SCH ×3 (08:44→23:42)
[2017-05-27] MEDS: PROTEASE PO SCH ×3 (08:44→17:29)
[2017-05-27] MEDS: AMYLASE PO SCH ×3 (08:44→17:29)
[2017-05-27] MEDS: FLUTICASONE/SALMETEROL 500-50 DISKUS 14 DOSE INH SCH ×2 (08:44→21:27)
[2017-05-27] MEDS: levETIRAcetam 500 MG TABLET PO SCH ×2 (08:45→21:20)
[2017-05-27] MEDS: CARBIDOPA/LEVODOPA 25-100 MG TABLET PO SCH ×3 (08:45→21:20)
[2017-05-27] MEDS: GABAPENTIN 300 MG CAPSULE PO SCH ×3 (08:45→21:19)
[2017-05-27] MEDS: PANTOPRAZOLE 40 MG TABLET PO SCH (08:46)
[2017-05-27] MEDS: OSELTAMIVIR 30 MG CAPSULE PO SCH ×2 (08:46→21:20)
[2017-05-27] MEDS: ASPIRIN EC 81 MG TABLET PO SCH (08:46)
[2017-05-27] MEDS: VORICONAZOLE 200 MG TABLET PO SCH ×2 (08:46→21:17)
[2017-05-27] MEDS: valACYclovir 500 MG TABLET PO SCH ×2 (08:46→21:19)
[2017-05-27] MEDS: ALPRAZolam 0.5 MG TABLET PO PRN ×2 (09:29→21:19)
[2017-05-27] MEDS: methylPREDNISolone SOD SUC 40 MG/1 ML VIAL IV SCH ×2 (12:56→21:16)
[2017-05-27] MEDS ORDERED: TUBERCULIN SKIN TEST 0.1 ML SYRINGE INTRADERM ONE (13:41)
[2017-05-27] MEDS: VANCOMYCIN INJ 1,000 MG in SODIUM CHLORIDE 0.9% 250 ML IV SCH (19:28)
[2017-05-27] MEDS: clonazePAM 0.5 MG TABLET PO SCH (21:18)
[2017-05-27] MEDS: MIRTAZAPINE 30 MG TABLET PO SCH (21:20)
[2017-05-27] MEDS: ENOXAPARIN 40 MG/0.4 ML SYRINGE SUBCUT SCH (21:21)
[2017-05-27] MEDS: INSULIN GLARGINE 100 UNIT/ML SUBCUT SCH (21:28)
[2017-05-28] MEDS: INSULIN REGULAR 100 UNIT/ML SUBCUT SCH ×5 (00:04→23:12)
[2017-05-28] MEDS: ALBUTEROL/IPRATROPIUM 3 ML NEB RESP TX SCH ×5 (03:35→20:28)
[2017-05-28] MEDS: DEXTROSE 50% 25 GM/50 ML VIAL IV PRN (03:36)
[2017-05-28] MEDS ORDERED: INSULIN GLARGINE 100 UNIT/ML SUBCUT SCH (08:44)
[2017-05-28] MEDS: MEROPENEM 1,000 MG in SYRINGE 1 EACH IV SCH (09:42)
[2017-05-28] MEDS: PROTEASE PO SCH ×3 (09:45→17:49)
[2017-05-28] MEDS: LIPASE PO SCH ×3 (09:45→17:49)
[2017-05-28] MEDS: AMYLASE PO SCH ×3 (09:45→17:49)
[2017-05-28] MEDS: GABAPENTIN 300 MG CAPSULE PO SCH ×3 (09:46→20:53)
[2017-05-28] MEDS: CARBIDOPA/LEVODOPA 25-100 MG TABLET PO SCH ×3 (09:46→20:54)
[2017-05-28] MEDS: PANTOPRAZOLE 40 MG TABLET PO SCH (09:46)
[2017-05-28] MEDS: valACYclovir 500 MG TABLET PO SCH ×2 (09:46→20:54)
[2017-05-28] MEDS: VORICONAZOLE 200 MG TABLET PO SCH ×2 (09:47→21:01)
[2017-05-28] MEDS: levETIRAcetam 500 MG TABLET PO SCH ×2 (09:47→20:53)
[2017-05-28] MEDS: OSELTAMIVIR 30 MG CAPSULE PO SCH (09:47)
[2017-05-28] MEDS: FLUTICASONE/SALMETEROL 500-50 DISKUS 14 DOSE INH SCH ×2 (09:47→21:00)
[2017-05-28] MEDS: ALPRAZolam 0.5 MG TABLET PO PRN (09:47)
[2017-05-28] MEDS: ASPIRIN EC 81 MG TABLET PO SCH (09:47)
[2017-05-28] MEDS: predniSONE 20 MG TABLET PO SCH ×2 (09:47→21:01)
[2017-05-28] MEDS: BENZONATATE 100 MG CAPSULE PO PRN (09:59)
[2017-05-28] MEDS: clonazePAM 0.5 MG TABLET PO SCH (20:52)
[2017-05-28] MEDS: MIRTAZAPINE 30 MG TABLET PO SCH (20:53)
[2017-05-28] MEDS: ENOXAPARIN 40 MG/0.4 ML SYRINGE SUBCUT SCH (20:54)
[2017-05-29] MEDS: ALBUTEROL/IPRATROPIUM 3 ML NEB RESP TX SCH ×6 (00:17→20:08)
[2017-05-29] MEDS: INSULIN REGULAR 100 UNIT/ML SUBCUT SCH ×2 (03:56→11:15)
[2017-05-29 07:22] LABS: Basophils % 0.1 % (0.0-0.8); Eosinophils % 0.1 % (0.00-10.9); Hematocrit 35.3 VOL% (35.7-47.0); Hemoglobin 10.8 GM/DL (12.0-16.0); Immature Granulocytes % 0.9 %; Immature Granulocytes Absolute 0.09 #; Lymphocytes # 0.4 10*3/uL (1.4-4.0); Lymphocytes % 4.2 % (21.3-54.2); Mean Corpuscular HGB Conc 30.6 GM/DL (32-36); Mean Corpuscular Hemoglobin 28 PG (27-34); Mean Corpuscular Volume 90.1 FL (87-102); Mean Platelet Volume 11.3 FL (9.6-12.0); Monocytes # 0.3 10*3/uL (0.11-0.8); Monocytes % 3.5 % (1.7-12.7); Neutrophils # 8.7 10*3/uL (1.4-7.4); Neutrophils % 91.2 % (38.7-73.9); Platelet Count 246 T/CUMM (130-400); Red Blood Count 3.92 MC/CUMM (3.8-5.5); White Blood Count 9.5 T/CUMM (4-12)
[2017-05-29 07:50] LABS: Band Neutrophils 4 % (0-10); Hypochromasia 2+; Lymphocytes 2 % (20-55); Microcytosis 2+; Platelet Estimate Adequate; Segmented Neutrophils 91 % (50-85); Total Cells Counted 100
[2017-05-29 08:49] LABS: Calcium 7.6 MG/DL (8.5-10.1); Magnesium 1.8 MG/DL (1.8-2.4); Osmolality,Calculated 298.8 MOS/KG (273-304); Potassium 4.8 MMOL/L (3.5-5.1)
[2017-05-29] MEDS: valACYclovir 500 MG TABLET PO SCH (11:03)
[2017-05-29] MEDS: PANTOPRAZOLE 40 MG TABLET PO SCH (11:04)
[2017-05-29] MEDS: ASPIRIN EC 81 MG TABLET PO SCH (11:04)
[2017-05-29] MEDS: AMYLASE PO SCH (11:04)
[2017-05-29] MEDS: PROTEASE PO SCH (11:04)
[2017-05-29] MEDS: LIPASE PO SCH (11:04)
[2017-05-29] MEDS: GABAPENTIN 300 MG CAPSULE PO SCH (11:04)
[2017-05-29] MEDS: CARBIDOPA/LEVODOPA 25-100 MG TABLET PO SCH (11:04)
[2017-05-29] MEDS: predniSONE 20 MG TABLET PO SCH (11:04)
[2017-05-29] MEDS: levETIRAcetam 500 MG TABLET PO SCH (11:04)
[2017-05-29] MEDS: VORICONAZOLE 200 MG TABLET PO SCH (11:05)
[2017-05-29 16:37] VITALS: BP 110/45
== END 2017-05-29 16:42 | disposition swing bed (61) | DRG 871 ==
LOC: SUATTDRO 16:49 → SUPCPDRO 16:49 → N.ICU 16:49 → N.3E 05-21 10:34
PROVIDERS: ADMIT Internal Medicine; ATTEND Internal Medicine